=== PATIENT | female | born 1990 | race Two or more races ===

== ENCOUNTER 2017-11-07 15:55 | Emergency (ER) | payer OTHER ==
[~2017-11-07] VITALS: Ht 152.4 cm; Wt 84.8 kg
[2017-11-07 16:56] VITALS: BP 139/87
[2017-11-07] MEDS ORDERED: KETOROLAC TROMETH 60MG/2ML VIAL IM ONE (17:30)
== END 2017-11-07 17:55 | disposition home or self-care (01) ==
LOC: ER 16:03
DX: S70.12XA Contusion of left thigh, initial encounter (principal); W01.0XXA Fall on same level from slipping, tripping and stumbling without subsequent striking against object, initial encounter; Y93.89 Activity, other specified; Y99.8 Other external cause status; Y92.89 Other specified places as the place of occurrence of the external cause
CPT/HCPCS: 73552; 96372; 99284; J1885